=== PATIENT | male | born 1960 | race Native Hawaiian/Other Pacific Islander ===

== ENCOUNTER 2016-03-21 08:59 | Emergency (ER) | payer OTHER ==
[~2016-03-21] VITALS: Ht 162.6 cm; Wt 68.0 kg
[~2016-03-21 08:59] MED LIST: BENA20TA2 PO; CLOP75TA2 PO; DEXAMETHASON4 MG PO; HYDR25TA60 PO; IMDUR60 MG PO; LISI20TA11 PO; METOPROLOL25 M1 PO; NITR0.4S2 SL; PRAVACHOL20 MG PO; PX ASPIRIN325 MG PO
[2016-03-21 09:18] VITALS: TEMP 98.1
[2016-03-21 10:13] LABS: PLATELET COUNT 254 K/uL (142-355)
[2016-03-21 10:15] LABS: POTASSIUM 4.1 mmol/L (3.6-5.2); SODIUM 136 mmol/L (136-145)
[2016-03-21 11:37] VITALS: BP 169/114
== END 2016-03-21 11:51 | disposition home or self-care (01) ==
LOC: ED 08:59
DX: M54.2 Cervicalgia (principal); M43.6 Torticollis
CPT/HCPCS: 80053; 85027; 93005; 99283; Q9963

== ENCOUNTER 2016-04-08 21:53 | Emergency (ER) | payer OTHER ==
[~2016-04-08] VITALS: Ht 165.1 cm; Wt 68.0 kg
[2016-04-08 23:26] VITALS: BP 187/95; TEMP 97.9
== END 2016-04-08 23:28 | disposition home or self-care (01) ==
LOC: ED 21:53
DX: S90.111A Contusion of right great toe without damage to nail, initial encounter (principal); W22.8XXA Striking against or struck by other objects, initial encounter; Y93.89 Activity, other specified; Y92.89 Other specified places as the place of occurrence of the external cause; Y99.8 Other external cause status
CPT/HCPCS: 96372; 99282; J1885

== ENCOUNTER 2016-06-24 21:35 | Emergency (ER) | payer OTHER ==
[~2016-06-24] VITALS: Ht 162.6 cm; Wt 68.0 kg
[2016-06-24 22:13] VITALS: BP 111/57; TEMP 98.3
[2016-06-24 22:13] LABS: PLATELET COUNT 323 K/uL (142-355)
[2016-06-24 22:17] LABS: POTASSIUM 3.9 mmol/L (3.6-5.2)
== END 2016-06-24 22:56 | disposition left against medical advice (07) ==
LOC: ED 21:35
DX: R07.89 Other chest pain (principal); K29.60 Other gastritis without bleeding; B96.81 Helicobacter pylori [H. pylori] as the cause of diseases classified elsewhere; M54.5 Low back pain
CPT/HCPCS: 36415; 80053; 82550; 84484; 85027; 85610; 86318; 93005; 96374; 96376; 99284; J1885

== ENCOUNTER 2017-02-12 17:21 | Emergency (ER) | payer OTHER ==
[~2017-02-12] VITALS: Ht 165.1 cm; Wt 70.3 kg
[2017-02-12] MEDS ORDERED: PERCOCET1 TA3 PO (17:31)
[2017-02-12 17:55] LABS: PLATELET COUNT 305 K/uL (142-355)
[2017-02-12 18:57] VITALS: BP 138/97; TEMP 98.4
== END 2017-02-12 18:58 | disposition home or self-care (01) ==
LOC: ED 17:21
DX: K04.7 Periapical abscess without sinus (principal); L03.211 Cellulitis of face
CPT/HCPCS: 85027; 96372; 99283; J0696; J1885

== ENCOUNTER 2017-05-12 15:50 | Outpatient (CLI) | payer OTHER ==
[~2017-05-12 15:50] MED LIST changes: +PERCOCET1 TA3 PO
== END 2017-05-12 15:51 | disposition short-term general hospital (02) ==
LOC: AMB 15:50
DX: M25.511 Pain in right shoulder (principal); R10.84 Generalized abdominal pain; V49.88XA Car occupant (driver) (passenger) injured in other specified transport accidents, initial encounter; Y92.488 Other paved roadways as the place of occurrence of the external cause
CPT/HCPCS: A0425; A0427

== ENCOUNTER 2017-05-12 16:00 | Emergency (ER) | payer OTHER ==
[~2017-05-12] VITALS: Ht 162.6 cm; Wt 70.3 kg
[2017-05-12 15:52] VITALS: BP 175/107; TEMP 98.1
== END 2017-05-12 16:42 | disposition home or self-care (01) ==
LOC: ED 16:00
DX: S40.011A Contusion of right shoulder, initial encounter (principal); V89.2XXA Person injured in unspecified motor-vehicle accident, traffic, initial encounter; Y92.9 Unspecified place or not applicable
CPT/HCPCS: 99281

== ENCOUNTER 2017-08-14 21:27 | Emergency (ER) | payer OTHER ==
[~2017-08-14] VITALS: Ht 162.6 cm; Wt 70.3 kg
[2017-08-14 21:38] VITALS: BP 212/134; TEMP 99.1
[2017-08-14 22:56] LABS: PLATELET COUNT 407 K/uL (142-355)
== END 2017-08-14 23:07 | disposition home or self-care (01) ==
LOC: ED 21:27
PROVIDERS: Specialist
DX: M54.89 Other dorsalgia (principal); R00.0 Tachycardia, unspecified
CPT/HCPCS: 36415; 80048; 85027; 87040; 93005; 96374; 99284; J0360

== ENCOUNTER 2018-02-25 18:04 | Emergency (ER) | payer OTHER ==
[~2018-02-25] VITALS: Ht 162.6 cm; Wt 65.8 kg
[2018-02-25 18:08] VITALS: TEMP 97.6
[2018-02-25 18:31] LABS: PLATELET COUNT 250 K/uL (142-355)
[2018-02-25 18:37] LABS: POTASSIUM 3.7 mmol/L (3.6-5.2); SODIUM 139 mmol/L (136-145)
[2018-02-25 20:38] VITALS: BP 152/84
== END 2018-02-25 20:38 ==
LOC: ED 18:04
PROVIDERS: Internal Medicine
DX: R07.89 Other chest pain (principal); R41.82 Altered mental status, unspecified; R00.0 Tachycardia, unspecified
CPT/HCPCS: 36415; 80053; 80307; 80320; 81000; 82550; 84484; 85027; 93005; 96374; 96376; 99284; J0360; J1885; J2405

== ENCOUNTER 2018-02-26 19:49 | Outpatient (CLI) | payer OTHER | END 2018-02-26 19:54 | disposition short-term general hospital (02) | LOC: AMB 19:49 | DX: R07.89 Other chest pain (principal) | CPT/HCPCS: A0425; A0427 ==

== ENCOUNTER 2018-02-26 20:00 | Emergency (ER) | payer OTHER ==
[~2018-02-26] VITALS: Ht 162.6 cm; Wt 65.8 kg
[2018-02-26 20:10] VITALS: TEMP 98.1
[2018-02-26 21:04] VITALS: BP 123/90
== END 2018-02-26 21:11 ==
LOC: ED 20:00
DX: R07.89 Other chest pain (principal); I25.10 Atherosclerotic heart disease of native coronary artery without angina pectoris; R00.0 Tachycardia, unspecified
CPT/HCPCS: 82550; 82553; 84484; 93005; 99283

== ENCOUNTER 2018-10-04 19:13 | Emergency (ER) | payer OTHER ==
[~2018-10-04] VITALS: Ht 165.1 cm; Wt 76.2 kg
[2018-10-04] MEDS ORDERED: ZESTRIL40 MG PO (20:02)
[2018-10-04 21:51] LABS: PLATELET COUNT 328 K/uL (142-355)
[2018-10-04 21:55] LABS: POTASSIUM 4.4 mmol/L (3.6-5.2)
[2018-10-05 01:07] VITALS: BP 138/86; TEMP 98.7
== END 2018-10-05 01:00 | disposition home or self-care (01) ==
LOC: ED 19:13
PROVIDERS: Emergency Medicine Emergency Medical Services
DX: J36 Peritonsillar abscess (principal); F17.210 Nicotine dependence, cigarettes, uncomplicated
CPT/HCPCS: 80053; 85027; 87651; 96372; 96374; 99284; J0696; J2930; Q9963

== ENCOUNTER 2018-10-23 12:14 | Outpatient (CLI) | payer OTHER ==
[~2018-10-23 12:14] MED LIST changes: +ZESTRIL40 MG PO
[2018-10-23 12:41] LABS: PLATELET COUNT 306 K/uL (142-355)
[2018-10-23 13:04] LABS: POTASSIUM 4.1 mmol/L (3.6-5.2)
== END 2018-10-23 16:00 | disposition home or self-care (01) ==
LOC: LABW 12:14
PROVIDERS: Internal Medicine Medical Oncology
DX: N40.0 Benign prostatic hyperplasia without lower urinary tract symptoms (principal); D72.820 Lymphocytosis (symptomatic)
CPT/HCPCS: 36415; 80053; 82784; 83883; 84153; 85027

== ENCOUNTER 2018-10-28 13:45 | Observation (INO) | payer OTHER ==
[~2018-10-28] VITALS: Ht 165.1 cm; Wt 76.2 kg
[2018-10-28 13:48] VITALS: BP 191/120; TEMP 98
[2018-10-28 14:17] LABS: PLATELET COUNT 302 K/uL (142-355)
[2018-10-28 14:25] LABS: POTASSIUM 3.5 mmol/L (3.6-5.2); SODIUM 139 mmol/L (136-145)
[2018-10-28 15:00] VITALS: BP 167/106
[2018-10-28 15:45] VITALS: BP 143/104
[2018-10-28 16:38] VITALS: BP 133/97; TEMP 98
[2018-10-28 19:46] VITALS: BP 169/95; TEMP 97.6
[2018-10-28 19:57] VITALS: BP 164/99; TEMP 97.4; Ht 165.1 cm; Wt 76.2 kg
[2018-10-29] VITALS: BP 121/67; TEMP 97.7
[2018-10-29 04:00] VITALS: BP 144/91; TEMP 98.2
[2018-10-29 08:00] VITALS: BP 178/110; TEMP 97.5
[2018-10-29 08:00] LABS: PLATELET COUNT 259 K/uL (142-355)
[2018-10-29] MEDS ORDERED: METO50TA27 PO (11:59)
[2018-10-29] MEDS ORDERED: COATED ASPIRIN325 MG PO (11:59)
[2018-10-29 12:00] VITALS: BP 160/86; TEMP 98
[2018-10-29] MEDS ORDERED: NITR0.4S SL (12:03)
[2018-10-29] MEDS ORDERED: CLOP75TA2 PO (12:04)
[2018-10-29] MEDS ORDERED: OXYCODONE HYDRO10 MG PO (12:07)
== END 2018-10-29 12:35 | disposition home or self-care (01) ==
LOC: ED 13:45 → MED/SURG 15:30
PROVIDERS: Internal Medicine; ADMIT Family Medicine
DX: R07.89 Other chest pain (principal); Z91.14 Patient's other noncompliance with medication regimen; I10 Essential (primary) hypertension; I25.2 Old myocardial infarction; G89.4 Chronic pain syndrome; I25.10 Atherosclerotic heart disease of native coronary artery without angina pectoris; R06.02 Shortness of breath
CPT/HCPCS: 36415; 80053; 80307; 81000; 82550; 83735; 83880; 84484; 85027; 85379; 85610; 93005; 96372; 96374; 96375; 99220; 99284; G0378; J0360; J1650; J2270; J2550

== ENCOUNTER 2019-06-14 20:58 | Emergency (ER) | payer OTHER ==
[~2019-06-14] VITALS: Ht 165.1 cm; Wt 65.8 kg
[~2019-06-14 20:58] MED LIST changes: +COATED ASPIRIN325 MG PO; +METO50TA27 PO; +NITR0.4S SL; +OXYCODONE HYDRO10 MG PO
[2019-06-14 21:48] VITALS: BP 169/94; TEMP 98
== END 2019-06-14 21:49 | disposition home or self-care (01) ==
LOC: ED 20:58
DX: N43.2 Other hydrocele (principal)
CPT/HCPCS: 96372; 99283; J0696; J1885

== ENCOUNTER 2019-11-11 16:00 | Emergency (ER) | payer OTHER ==
[~2019-11-11] VITALS: Ht 165.1 cm; Wt 72.6 kg
[2019-11-11 16:48] LABS: PLATELET COUNT 249 K/uL (142-355)
[2019-11-11 16:51] LABS: POTASSIUM 3.7 mmol/L (3.6-5.2); SODIUM 139 mmol/L (136-145)
[2019-11-11 18:08] VITALS: BP 157/89; TEMP 98.9
== END 2019-11-11 18:09 | disposition home or self-care (01) ==
LOC: ED 16:00
PROVIDERS: Emergency Medicine Emergency Medical Services
DX: J20.9 Acute bronchitis, unspecified (principal); R07.89 Other chest pain; R06.02 Shortness of breath; F17.210 Nicotine dependence, cigarettes, uncomplicated; Z20.828 Contact with and (suspected) exposure to other viral communicable diseases
CPT/HCPCS: 36415; 80053; 83690; 83880; 84484; 85027; 87635; 93005; 96360; 96361; 96365; 96374; 96375; 99284; J1100; J2270; U0003

== ENCOUNTER 2019-12-24 11:49 | Emergency (ER) | payer OTHER ==
[~2019-12-24] VITALS: Ht 165.1 cm; Wt 72.6 kg
[2019-12-24 12:08] VITALS: BP 203/122; TEMP 98.4
== END 2019-12-24 15:10 | disposition home or self-care (01) ==
LOC: ED 11:49
PROC: 2W3CX1Z Immobilization of Right Lower Arm using Splint (ICD-10-PCS; principal; 2019-12-24)
DX: S60.211A Contusion of right wrist, initial encounter (principal); W22.8XXA Striking against or struck by other objects, initial encounter; Y92.89 Other specified places as the place of occurrence of the external cause
CPT/HCPCS: 99283

== ENCOUNTER 2021-12-24 10:47 | Emergency (ER) | payer OTHER ==
[~2021-12-24] VITALS: Ht 165.1 cm; Wt 72.6 kg
[2021-12-24 10:47] VITALS: TEMP 98
[2021-12-24 11:16] LABS: PLATELET COUNT 318 K/uL (142-355)
[2021-12-24 11:25] LABS: POTASSIUM 3.7 mmol/L (3.6-5.2)
[2021-12-24 11:41] LABS: PARTIAL THROMBOPLASTIN TIME 44.4 SECONDS (24.5-33.6)
[2021-12-24 13:00] VITALS: BP 162/70
== END 2021-12-24 13:10 | disposition home or self-care (01) ==
LOC: ED 10:50
PROVIDERS: Emergency Medicine
DX: I10 Essential (primary) hypertension (principal); Z79.899 Other long term (current) drug therapy
CPT/HCPCS: 80053; 80307; 83880; 84484; 85027; 85379; 85610; 85730; 93005; 99284

== ENCOUNTER 2022-02-20 23:48 | Emergency (ER) | payer OTHER ==
[~2022-02-20] VITALS: Ht 165.1 cm; Wt 72.6 kg
[2022-02-21 00:41] LABS: POTASSIUM 3.9 mmol/L (3.6-5.2)
[2022-02-21 00:54] LABS: PLATELET COUNT 264 K/uL (142-355)
[2022-02-21 01:17] LABS: PARTIAL THROMBOPLASTIN TIME 30.2 SECONDS (24.5-33.6)
[2022-02-21 04:00] VITALS: BP 131/81; TEMP 97.9
== END 2022-02-21 04:11 | disposition home or self-care (01) ==
LOC: ED 23:48
PROVIDERS: Family Medicine
DX: K04.7 Periapical abscess without sinus (principal); I10 Essential (primary) hypertension; R07.89 Other chest pain; R51.9 Headache, unspecified; F17.210 Nicotine dependence, cigarettes, uncomplicated; Z79.899 Other long term (current) drug therapy
CPT/HCPCS: 36415; 80053; 80307; 81000; 82150; 82550; 83690; 84484; 85027; 85610; 85730; 87081; 93005; 96365; 99284; J0295

== ENCOUNTER 2022-05-28 16:38 | Emergency (ER) | payer OTHER ==
[~2022-05-28] VITALS: Ht 165.1 cm; Wt 86.2 kg
[2022-05-28 17:34] LABS: PLATELET COUNT 258 K/uL (142-355)
[2022-05-28 20:40] VITALS: BP 142/82; TEMP 98.2
== END 2022-05-28 20:40 | disposition left against medical advice (07) ==
LOC: ED 16:38
PROVIDERS: Family Medicine
DX: S62.604A Fracture of unspecified phalanx of right ring finger, initial encounter for closed fracture (principal); S06.0X0A Concussion without loss of consciousness, initial encounter; S61.324A Laceration with foreign body of right ring finger with damage to nail, initial encounter; V86.55XA Driver of 3- or 4- wheeled all-terrain vehicle (ATV) injured in nontraffic accident, initial encounter; Y92.89 Other specified places as the place of occurrence of the external cause; Z53.29 Procedure and treatment not carried out because of patient's decision for other reasons
CPT/HCPCS: 80320; 85027; 90471; 90715; 96372; 99283

== ENCOUNTER 2022-05-28 20:02 | Emergency (ER) | payer OTHER | END 2022-05-28 20:10 | disposition left against medical advice (07) | LOC: ED 20:02 | DX: S61.214A Laceration without foreign body of right ring finger without damage to nail, initial encounter (principal); V86.59XA Driver of other special all-terrain or other off-road motor vehicle injured in nontraffic accident, initial encounter; Y92.89 Other specified places as the place of occurrence of the external cause | CPT/HCPCS: 99281 ==

== ENCOUNTER 2022-09-25 23:47 | Emergency (ER) | payer OTHER ==
[~2022-09-25] VITALS: Ht 165.1 cm; Wt 79.4 kg
[2022-09-26 00:59] LABS: POTASSIUM 4.1 mmol/L (3.6-5.2)
[2022-09-26 01:01] LABS: PARTIAL THROMBOPLASTIN TIME 31.9 SECONDS (23.9-36.7)
[2022-09-26 01:08] LABS: PLATELET COUNT 229 K/uL (142-355)
[2022-09-26 02:00] VITALS: BP 143/90; TEMP 97.7
== END 2022-09-26 02:00 | disposition home or self-care (01) ==
LOC: ED 23:47
PROVIDERS: Family Medicine
DX: R51.9 Headache, unspecified (principal); I73.9 Peripheral vascular disease, unspecified
CPT/HCPCS: 36415; 80053; 80320; 85027; 85610; 85730; 93005; 99283